=== PATIENT | female | born 1935 | race Caucasian/White ===

== ENCOUNTER 2017-02-17 07:47 | Day surgery (SDC) | payer OTHER, BC ==
[2017-02-17] MEDS ORDERED: D5 LR 1000 ML 1,000 ML IV ONE (08:19)
[2017-02-17] MEDS ORDERED: DIPRIVAN VIAL 20 ML ONE (09:08)
[2017-02-17 10:29] VITALS: BP 159/74
== END 2017-02-17 10:32 | disposition home or self-care (01) ==
LOC: SURG1 07:47
PROVIDERS: ATTEND Internal Medicine Gastroenterology
PROC: 0DB48ZX Excision of Esophagogastric Junction, Via Natural or Artificial Opening Endoscopic, Diagnostic (ICD-10-PCS; principal; 2017-02-17 09:00)
PROC: 0DB88ZX Excision of Small Intestine, Via Natural or Artificial Opening Endoscopic, Diagnostic (ICD-10-PCS; principal; 2017-02-17 09:00)
PROC: 0DB68ZX Excision of Stomach, Via Natural or Artificial Opening Endoscopic, Diagnostic (ICD-10-PCS; principal; 2017-02-17 09:00)
PROC: 0DJ08ZZ Inspection of Upper Intestinal Tract, Via Natural or Artificial Opening Endoscopic (ICD-10-PCS; principal; 2017-02-17 09:00)
DX: R10.13 Epigastric pain (principal); K21.9 Gastro-esophageal reflux disease without esophagitis; K20.8 Other esophagitis; K31.89 Other diseases of stomach and duodenum; K29.60 Other gastritis without bleeding
CPT/HCPCS: 99100; A4217; J3490; J7120

== ENCOUNTER → 2017-09-07 | Outpatient (CLI) | payer OTHER, BC ==
--- NOTE | 2017-09-12 11:33 | MG ---
HISTORY: SCREENING Comparison: 01/02/2015 FINDINGS: Bilateral CC and MLO projections of the right and left breast were obtained. Dense fibroglandular ti ssue is seen to be present. No significant architectural distortion, mass or clustered microcalcific ations can be observed to suggest malignancy. No skin thickening or nipple retraction is appreciated . No pathological lymphadenopathy can be identified. Benign-appearing calcifications scattered thro ughout the right and left breasts are observed. IMPRESSION: NO RADIOGRAPHIC EVIDENCE OF MALIGNANCY. ACR CATEGORY: 2 - benign findings. FOLLOW-UP EXAM 1 YEAR. Diagnostic CAD was utilized and reviewed. * 0 (ZERO) - ASSESSMENT INCOMPLETE; ADDITIONAL IMAGING IS NEEDED. * 1/1 (ONE) - NEGATIVE. * 2/II (TWO) - BENIGN FINDINGS. * 3/III (THREE) - PROBABLY BENIGN FINDING; SHORT INTERVAL FOLLOW-UP SUGGESTED. * 4/IV (FOUR) - SUSPICIOUS ABNORMALITY; BIOPSY SHOULD BE CONSIDERED. * 5/V - HIGHLY SUSPICIOUS OF MALIGNANCY; BIOPSY SHOULD BE PERFORMED. A NEGATIVE X-RAY REPORT SHOULD NOT DELAY BIOPSY IF A DOMINANT OR CLINICALLY SUSPICIOUS MASS IS PRESENT; 4 TO 8 PERCENT OF CANCERS ARE NOT IDENTIFIED BY X-RAY. A NEGA TIVE REPORT MAY REINFORCE THE CLINICAL IMPRESSION. ADENOSIS AND DENSE BREASTS MAY OBSCURE AN UNDERLY ING NEOPLASM. Reported By:
== END ==
LOC: RAD 13:44
PROVIDERS: ATTEND Specialist
DX: Z12.31 Encounter for screening mammogram for malignant neoplasm of breast (principal)
CPT/HCPCS: 77067

== ENCOUNTER 2018-02-28 15:21 | Emergency (ER) | payer OTHER, BC ==
[2018-02-28 15:39] VITALS: BP 130/57; BMI 25.9
--- NOTE | 2018-02-28 16:06 | DR.EXTPAIN ---
HPI - PCP Primary Care Physician: YAHAIRA - Complaint/Symptoms Chief Complaint:: ON TUESDAY REACHED BEHIND HER BACK TO PULL OUT HER SHIRT AND NOW HAS LARGE CIRCUMFENCIAL BRUISE DARK PURPLE AND YELLOW IN COLOR TO RIGHT BICEP AREA. NOTED RADIAL AND PULSE AT ANTICUBITAL AREA. COMPLAINS OF INCREASED PAIN TO AFFECTED AREA Self Treatment fo Chief Complaint: TAKING MEDS - Source History Provided: Patient - Mode of arrival Mode of Arrival: Ambulatory - Timing Onset of Chief Complaint: 02/26/18 PMH - PMH Past Medical History: Yes Past Medical History: Arthritis, Dyslipidemia, GERD Past Surgical History: Yes Surgical History: Appendectomy, Cholecystectomy, Hysterectomy Past Surgical History Comment: RETINA SURGERY ON RIGHT ARM - Family History History of Family Medical Conditions: Yes Family Medical History: Cancer, Heart Failure - Social History Do you use any recreational Drugs:: No Lives With: Family Lives Where: Home - infectious screening In the last 2 months have you had wt loss of >10#?: NO Have you had fever, night sweats or hemotysis?: No Have you traveled outside the country in the last 6 months?: No Isolation: Standard PE - Vital Signs Vitals: Temperature 97.8 F Pulse Rate 86 Respiratory Rate 18 Blood Pressure [Right Arm] 147/77 Blood Pressure 130/57 O2 Sat by Pulse Oximetry 98 - Diagnosis Discharge Problem: Biceps tendon tear - Discharge Plan Condition: Stable - Follow ups/Referrals Follow ups/Referrals: NFD,None [Primary Care Provider] - 3 days - Instructions Instructions: Muscle Strain, Biceps Tendon Disruption (Distal) Additional Instructions: RETURN TO ED IF WORSE.
[2018-02-28] MEDS ORDERED: MORPHINE SULFATE INJ 2 MG INJ IVP ONE (16:08)
[2018-02-28] MEDS ORDERED: ZOFRAN INJ 4 MG VIAL IVP ONE (16:10)
[2018-02-28] MEDS ORDERED: MORPHINE SULFATE INJ 2 MG INJ IM ONE (16:20)
[2018-02-28] MEDS ORDERED: ZOFRAN INJ 4 MG VIAL IM ONE (16:20)
[2018-02-28] MEDS ORDERED: ZOFRAN INJ 4 MG VIAL ONE (16:22)
[2018-02-28] MEDS ORDERED: MORPHINE SULFATE INJ 2 MG INJ ONE (16:22)
--- NOTE | 2018-02-28 17:17 | CT ---
CT right upper extremity without contrast Indication: Pain and ecchymosis of the distal upper arm after recent injury. Comparison: None Technique: CT images of the right humerus were obtained without contrast. Automatic exposure control was utilized. Findings: The posterior distal humerus was excluded. No acute cortical disruption of the visualized h umerus is identified. There is moderate to advanced degenerative disease of the glenohumeral and acro mioclavicular joints, with acromiohumeral interval narrowing. Of note, the supraspinatus and infraspi natus muscle bellies are atrophic. There is subcutaneous stranding of the distal upper arm. As well, there is some nonspecific stranding in the region of the distal biceps musculotendinous junction, without discrete observable collection . The distal biceps tendon is not definitely identified. No significant effusion of the visualized el bow. Impression: 1. Nonspecific fat stranding within the subcutaneous tissues of the distal lower arm, as well as in t he region of the distal biceps musculotendinous junction. The distal biceps tendon is not definitely identified, although the soft tissues are poorly evaluated with noncontrast CT. These findings could represent at least partial distal biceps musculotendinous or tendon tear. Correlate with exam. Consid er nonemergent elbow MRI with FABS positioning, if there is concern for distal biceps injury. 2. No acute osseous injury of the visualized humerus. 3. 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 Reported By:
== END 2018-02-28 18:07 | disposition home or self-care (01) ==
LOC: ER 15:44
DX: M66.821 Spontaneous rupture of other tendons, right upper arm (principal)
CPT/HCPCS: 73200; 96372; 99282; J2270; J2405

== ENCOUNTER 2024-08-13 09:31 | Observation (INO) ==
--- NOTE | 2024-08-13 09:43 | EKG ---
Test Reason : Altered Mental Status Blood Pressure : */* mmHG Vent. Rate : 131 BPM Atrial Rate : 131 BPM P-R Int : 148 ms QRS Dur : 82 ms QT Int : 292 ms P-R-T Axes : 57 -47 88 degrees QTc Int : 431 ms Sinus tachycardia Left anterior fascicular block Left ventricular hypertrophy with repolarization abnormality ( R in aVL , Timothy product ) Possible Lateral infarct (cited on or before 15-SEP-2023) Cannot rule out Inferior infarct , age undetermined Abnormal ECG When compared with ECG of 12-MAR-2024 14:27, Nonspecific T wave abnormality no longer evident in Anterior leads Confirmed by Yaw Jones MD ([id number]) on 08/14/2024 7:34:54 AM Referred By: Confirmed By: Yaw Jones MD
[2024-08-13 09:49] VITALS: BMI 23.6
[2024-08-13] MEDS ORDERED: APRESOLINE INJ 20 MG VIAL ONE (09:58)
--- NOTE | 2024-08-13 09:58 | DR.AMS ---
HPI Time Seen Time Seen by Provider: 08/13/24 09:58 PCP Primary Care Physician: Dr. Pichardo HPI Comment HPI Comment: History as below. Complaint Cheif Complaint Doctors Comments: Patient is 88yr old female in ER with AMS noted this AM. Chief Complaint:: EMS report that pt family states that pt was c/o generalized pain last night and pt had Tramadol 100mg po around midnight and then Xanax 1mg po around 01:30am. Pt's daughter reports that when pt woke up this morning pt would open her eyes but would not respond verbally or follow commands. Upon arrival to ED pt continues to not respond verbally but does respond to painful stimuli, COVID-19 Coronavirus risk:travel/contact w/high risk person: No Has patient experienced Coronavirus symptoms: No Reviewed Nurses Notes Reviewed: Yes Source History Provided: EMS Mode of Arrival Mode of Arrival: EMS Timing Onset of Chief Complaint: 08/13/24 PMH PMH Past Medical History: Yes Past Medical History: Anxiety, CVA, Depression, Dyslipidemia, Migraines, GERD and Hypertension Past Medical History Comment: afib, tardive dyskinesia, pulmonary embolism, TIA Past Surgical History: Yes Surgical History: Appendectomy, Cholecystectomy, Hysterectomy and Ortho Surgery Family History History of Family Medical Conditions: Yes Family Medical History: Cancer, NM and Coronary Artery Disease Social History Does patient currently use any type of tobacco product: No Have you used tobacco products in the last 12 months: No Type of Tobacco Use: None Does any household member use tobacco: No Alcohol Use: None Do you use any recreational Drugs:: No Lives With: Family Lives Where: Home Travel Risk Coronavirus risk:travel/contact w/high risk person: No Has patient experienced Coronavirus symptoms: No Infectious screening In the last 2 months have you had wt loss of >10#?: NO Have you had fever, night sweats or hemotysis?: No Have you traveled outside the country in the last 6 months?: No Isolation: Standard PE Vitals Vital Signs: Temp Pulse Resp BP Pulse Ox O2 Del Method 08/13/24 14:30 97 H 17 95 08/13/24 14:30 161/71 08/13/24 14:15 97 H 16 94 L 08/13/24 14:15 154/70 08/13/24 14:00 166/75 08/13/24 14:00 98 H 17 93 L 08/13/24 13:45 98 H 18 95 08/13/24 13:45 164/73 08/13/24 13:30 163/67 08/13/24 13:30 98 H 17 95 08/13/24 13:15 103 H 18 96 08/13/24 13:15 176/78 08/13/24 13:15 176/78 08/13/24 13:14 171/96 08/13/24 13:14 108 H 17 97 08/13/24 13:13 113 H 08/13/24 12:45 124 H 22 95 08/13/24 12:45 170/82 08/13/24 12:33 178/86 08/13/24 12:33 124 H 22 95 08/13/24 12:31 125 H 08/13/24 10:50 165/77 08/13/24 10:50 106 H 18 95 08/13/24 10:45 106 H 17 95 08/13/24 10:40 164/77 08/13/24 10:40 120 H 23 08/13/24 10:30 168/79 08/13/24 10:30 109 H 18 08/13/24 10:20 159/74 08/13/24 10:19 110 H 28 H 08/13/24 10:16 175/84 08/13/24 10:16 119 H 25 H 08/13/24 10:16 175/84 08/13/24 10:15 121 H 31 H 08/13/24 10:09 119 H 25 H 08/13/24 10:09 161/65 08/13/24 10:01 133 H 29 H 08/13/24 10:01 183/105 08/13/24 10:00 128 H 25 H 96 08/13/24 09:50 136 H 26 H 94 L 08/13/24 09:50 193/111 08/13/24 09:45 140 H 29 H 94 L 08/13/24 09:41 131 H 24 95 08/13/24 09:41 188/82 08/13/24 09:36 186/94 08/13/24 09:36 136 H 26 H 95 08/13/24 09:39 99.6 F 137 H 22 186/94 94 L Room Air ROR Labs Reviewed 08/13/24 09:40 08/13/24 09:40 Laboratory: WBC 11.9 X10^3/uL (3.6-10.0) H 08/13/24 09:40 RBC 4.98 X10^6/uL (3.5-5.4) 08/13/24 09:40 Hgb 14.4 g/dL (12.0-16.0) 08/13/24 09:40 Hct 42.8 % (36.0-47.0) 08/13/24 09:40 MCV 86.1 fL (80.0-100.0) 08/13/24 09:40 MCH 29.0 pg (27.0-34.0) 08/13/24 09:40 MCHC 33.6 g/dL (33.0-35.0) 08/13/24 09:40 RDW 15.4 % (11.6-16.5) 08/13/24 09:40 Plt Count 346 X10^3/uL (150.0-450.0) 08/13/24 09:40 MPV 7.2 fL (7.4-11.0) L 08/13/24 09:40 Neut % (Auto) 87.5 % (42.0-75.0) H 08/13/24 09:40 Lymph % (Auto) 7.2 % (21.0-51.0) L 08/13/24 09:40 [place] % (Auto) 5.0 % (0.0-13.0) 08/13/24 09:40 Eos % (Auto) 0.0 % (0.9-2.9) L 08/13/24 09:40 Baso % (Auto) 0.3 % (0.2-1.0) 08/13/24 09:40 Neut # (Auto) 10.4 x10^3/uL (2.2-4.8) H 08/13/24 09:40 Lymph # (Auto) 0.9 X10^3/uL (1.3-2.9) L 08/13/24 09:40 [place] # (Auto) 0.6 x10^3/uL (0.3-0.8) 08/13/24 09:40 Eos # (Auto) 0.0 x10^3/uL (0.0-0.2) 08/13/24 09:40 Baso # (Auto) 0.0 X10^3/uL (0.0-0.1) 08/13/24 09:40 Absolute Nucleated RBC 0.1 /100WBC 08/13/24 09:40 D-Dimer 2.36 ug/ml (0.0-0.57) H 08/13/24 09:40 Sodium 131 mmol/L (136-145) L 08/13/24 09:40 Corrected Sodium 131 mmol/L (136-145) L 08/13/24 09:40 Potassium 4.2 mmol/L (3.5-5.1) 08/13/24 09:40 Chloride 95 mmol/L (98-107) L 08/13/24 09:40 Carbon Dioxide 27.4 mmol/L (21-32) 08/13/24 09:40 BUN 12 mg/dL (7-18) 08/13/24 09:40 Creatinine 1.00 mg/dL (0.55-1.02) 08/13/24 09:40 Est GFR (MDRD) Af Amer > 60 (>60) 08/13/24 09:40 Est GFR (MDRD) Non-Af 56 (>60) L 08/13/24 09:40 Glucose 112 mg/dL (65-99) H 08/13/24 09:40 Lactic Acid 1.2 mmol/L (0.4-2.0) 08/13/24 12:41 Calcium 9.0 mg/dL (8.5-10.1) 08/13/24 09:40 Corrected Calcium TNP 08/13/24 09:40 Total Bilirubin 0.60 mg/dL (0.2-1.0) 08/13/24 09:40 AST 25 Units/L (15-37) 08/13/24 09:40 ALT 19 Units/L (12-78) 08/13/24 09:40 Alkaline Phosphatase 79 Units/L (46-116) 08/13/24 09:40 Creatine Kinase 118 Units/L (26-192) 08/13/24 09:40 Troponin I High Sens 9.7 ng/L (4.0-60.0) 08/13/24 09:40 B-Natriuretic Peptide 37.2 pg/mL (0-79) 08/13/24 09:40 Total Protein 8.0 g/dL (6.4-8.2) 08/13/24 09:40 Albumin 4.4 g/dL (3.4-5.0) 08/13/24 09:40 Globulin 3.6 g/dL (2.5-4.5) 08/13/24 09:40 Albumin/Globulin Ratio 1.2 Ratio (1.1-2.1) 08/13/24 09:40 Specimen Type Catherized urine 08/13/24 10:17 Urine Color Straw (YELLOW) 08/13/24 10:17 Urine Appearance Clear (CLEAR) 08/13/24 10:17 Urine pH 7.0 (5.0 - 8.0) 08/13/24 10:17 Ur Specific [place] 1.010 (1.000-1.030) 08/13/24 10:17 Urine Protein 2+ (NEGATIVE) 08/13/24 10:17 Urine Glucose (UA) Negative (NEGATIVE) 08/13/24 10:17 Urine Ketones Negative (NEGATIVE) 08/13/24 10:17 Urine Blood 2+ (NEGATIVE) 08/13/24 10:17 Urine Nitrite Negative (NEGATIVE) 08/13/24 10:17 Urine Bilirubin Negative (NEGATIVE) 08/13/24 10:17 Urine Urobilinogen Normal (NORMAL) 08/13/24 10:17 Ur Leukocyte Esterase Negative (NEGATIVE) 08/13/24 10:17 Urine RBC 5-10 /HPF (0-3) A 08/13/24 10:17 Urine WBC 0-2 /HPF (0-5) 08/13/24 10:17 Ur Squamous Epith Cells Few /HPF (NEGATIVE) 08/13/24 10:17 Ur Renal Epithelial Cell Rare /HPF (NEGATIVE) 08/13/24 10:17 Urine Bacteria Trace /HPF (NEGATIVE) 08/13/24 10:17 Urine Mucus Few /HPF (NEGATIVE) 08/13/24 10:17 Ur Culture Indicated? No/not indicated 08/13/24 10:17 Opioid Opioid Risk Tool Age (Sean box if 16-45): No History of Preadolescent Sexual Abuse: No Total: 0 Total Score Risk Category: Low Risk Copyright: Gabriel MCNAMARA predicting aberrant behaviors Discharge Plan Diagnosis Discharge Problem: Generalized weakness, Dehydration AMS (altered mental status) Qualifiers: Altered mental status type: transient alteration of awareness Qualified Code(s): R40.4 - Transient alteration of awareness Pneumonia Qualifiers: Pneumonia type: due to unspecified organism Laterality: bilateral Lung location: lower lobe of lung Qualified Code(s): J18.9 - Pneumonia, unspecified organism Discharge Plan Patient Disposition: 09 ADMITTED INPATIENT Condition: Stable Orders to Discharge Patient Discharge Orders: Transfer (Routine); Ordered 08/13/24 Ordered By: JOSH REYNOSO
[2024-08-13] MEDS: CARDIZEM INJ 50 MG VIAL IVP ONE (10:05)
[2024-08-13 10:11] LABS: BASOPHILS % (AUTO) 0.3 % (0.2-1.0); HEMATOCRIT 42.8 % (36.0-47.0); HEMOGLOBIN 14.4 g/dL (12.0-16.0); LYMPHOCYTES # (AUTO) 0.9 X10^3/uL (1.3-2.9); LYMPHOCYTES % (AUTO) 7.2 % (21.0-51.0); MEAN CORPUSCULAR HGB CONC 33.6 g/dL (33.0-35.0); MEAN CORPUSCULAR VOLUME 86.1 fL (80.0-100.0); MEAN PLATELET VOLUME 7.2 fL (7.4-11.0); MONOCYTES # (AUTO) 0.6 x10^3/uL (0.3-0.8); NEUTROPHILS # (AUTO) 10.4 x10^3/uL (2.2-4.8); NEUTROPHILS % (AUTO) 87.5 % (42.0-75.0); PLATELET COUNT 346 X10^3/uL (150.0-450.0); RED BLOOD COUNT 4.98 X10^6/uL (3.5-5.4); RED CELL DISTRIBUTION WIDTH 15.4 % (11.6-16.5); WHITE BLOOD COUNT 11.9 X10^3/uL (3.6-10.0)
--- NOTE | 2024-08-13 10:23 | RAD ---
EXAMINATION: CHEST, 1 VIEW HISTORY: AMS, FEVER, TACHYCARDIA; . COMPARISON STUDY: Chest x-ray 03/12/2024 TECHNIQUE: Single frontal view of the chest FINDINGS: Lungs are expanded. Heart size and pulmonary vascular pattern appear normal. CP angles are sharp. Bones appear intact. IMPRESSION: No acute cardiopulmonary process seen. THIS IS AN ELECTRONICALLY VERIFIED FINAL REPORT 08/13/2024 10:20 AM - Electronically signed by Rhianna Stafford MD
[2024-08-13 10:24] LABS: ALANINE AMINOTRANSFERASE 19 Units/L (12-78); ALBUMIN 4.4 g/dL (3.4-5.0); ALKALINE PHOSPHATASE 79 Units/L (46-116); ASPARTATE AMINO TRANSFERASE 25 Units/L (15-37); BLOOD UREA NITROGEN 12 mg/dL (7-18); CARBON DIOXIDE 27.4 mmol/L (21-32); CHLORIDE 95 mmol/L (98-107); COR NA(FOR HYPERGLY) 131 mmol/L (136-145); CREATINE KINASE 118 Units/L (26-192); GLUCOSE 112 mg/dL (65-99); POTASSIUM 4.2 mmol/L (3.5-5.1); SODIUM 131 mmol/L (136-145); eGFR NON BLACK RACES 56 (>60)
[2024-08-13] MEDS: APRESOLINE INJ 20 MG VIAL IVP ONE (10:24)
[2024-08-13 10:26] LABS: BILIRUBIN,URINE NEGATIVE (NEGATIVE); BLOOD/HEMOGLOBIN,URINE 2+ (NEGATIVE); GLUCOSE, URINE NEGATIVE (NEGATIVE); KETONES,URINE NEGATIVE (NEGATIVE); LEUKOCYTE ESTERASE ,URINE NEGATIVE (NEGATIVE); NITRITES,URINE NEGATIVE (NEGATIVE); PROTEIN,URINE 2+ (NEGATIVE); UROBILINOGEN,URINE NORMAL (NORMAL)
[2024-08-13] MEDS: NS 1,000 ML IV 1,000 ML IV SCH (10:34)
[2024-08-13 10:52] LABS: APPEARANCE,URINE CLEAR (CLEAR); COLOR,URINE STRAW (YELLOW)
[2024-08-13 10:56] LABS: BACTERIA,URINE TRACE /HPF (NEGATIVE); RENAL EPITHELIAL CELLS,URINE RARE /HPF (NEGATIVE); SQUAMOUS EPITHELIAL CELL,UR FEW /HPF (NEGATIVE)
[2024-08-13] MEDS ORDERED: OMNIPAQUE 350 mg/mL 100 mL BTL 100 ML ONE (12:33)
--- NOTE | 2024-08-13 13:49 | CT ---
EXAMINATION: CTA, CHEST HISTORY: ELEVATED DDIMER; COMPARISON: None. TECHNIQUE: Contiguous axial CT images of the thorax following intravenous contrast. Images are reviewed in the axial imaging plane with post processing thick slab MIP/3D volume images at a workstation.The above C T scan was done with automated exposure control and the mA and kV was adjusted to obtain quality imag es according to patient size. FINDINGS: The lungs are expanded. Subtle interstitial alveolar infiltrates in the lower lung russell. No pleur al fluid collections. The central airways are patent. Normal enhancement of the heart and great vessels. Coronary artery calcifications. No evidence of a cute pulmonary within the main central pulmonary arteries. However, the more distal tertiary branch vessels of the pulmonary bases are not optimally visualized due to patient motion imaging artifacts. Odep-[id number] spondylosis. IMPRESSION: No evidence of thrombus within the main central pulmonary arteries, however, the more distal tertiary branch vessels of the pulmonary arteries in the lower lungs are not optimally visualized due to jaclyn ent motion imaging artifacts. Subtle interstitial alveolar infiltrates in the lower lungs russell. THIS IS AN ELECTRONICALLY VERIFIED FINAL REPORT 08/13/2024 1:36 PM - Electronically signed by Rhianna Stafford MD
[2024-08-13] MEDS: ZOSYN VIAL 3.375 GRAMS 3.375 G in NS 100 ML IV 100 ML IV ONE (14:25)
--- NOTE | 2024-08-13 15:11 | CT ---
EXAM: ABDOMEN/PELVIS W/O CON HISTORY: ABD PAIN ; COMPARISON: CT abdomen 12/20/2022 TECHNIQUE: Multiple CT axial images of the abdomen and pelvis were obtained without IV contrast. Coronal and sag ittal images were reconstructed. Dose reduction techniques included Automated Exposure Control (AEC) and adjustment of mA and kV. FINDINGS: The lung bases are clear. Heart size is large. The liver is normal in size and configuration. Surgical clips are present in the gallbladder fossa f rom a cholecystectomy. The spleen is normal in size and shape. The adrenal glands are normal. The pancreas is normal. No abnormal calcifications are present in the kidneys, ureters, or urinary bladder. The kidneys have normal size and shape. There is no hydronephrosis or significant perirenal edema. The urinary bladd er is contracted around a Watkins balloon catheter. The bowel is not dilated. There is no wall thickening in the bowel or edema around the bowel. A norm al appendix is not identified. But there is no inflammation around the cecum or at the expected locat ion of the appendix. Moderate stool volume in the right colon suggests constipation. Degenerative spondylitic changes are present in the spine. Mild levoconvex scoliosis. IMPRESSION: 1. Findings suggesting right-sided colon constipation 2. No acute findings THIS IS AN ELECTRONICALLY VERIFIED FINAL REPORT 08/13/2024 3:08 PM - Electronically signed by Jimbo Flaherty MD
--- NOTE | 2024-08-13 15:19 | CT ---
EXAM: PELVIS W/O CON HISTORY: FALL, C/O B/L HIP PAIN ; COMPARISON: None. TECHNIQUE: Nonenhanced spiral CT imaging was performed through the pelvis and axial, coronal, and sagittal CT im ages were generated. FINDINGS: No pelvic fracture is identified. There is degeneration in both hip joints and in both SI joints and in the pubic symphysis and in the lower lumbar spine. There is a Watkins catheter in the urinary blad yadira. No worrisome soft tissue abnormality in the pelvis. IMPRESSION: Negative for fracture. THIS IS AN ELECTRONICALLY VERIFIED FINAL REPORT 08/13/2024 3:17 PM - Electronically signed by Saul Carrasquillo MD
--- NOTE | 2024-08-13 15:19 | CT ---
EXAM: LUMBAR SPINE W/O CON HISTORY: FALL, C/O B/L HIP PAIN ; COMPARISON: None TECHNIQUE: Multiple CT axial images of the lumbar spine were obtained without IV contrast. Coronal and sagittal images were reconstructed. Dose reduction techniques included Automated Exposure Control (AEC) and ad justment of mA and kV. FINDINGS: Mild levoconvex scoliosis is present. The usual lordosis is maintained. The bones are demineralized . There are 5 non ribbed lumbar vertebra. The heights of the vertebral bodies are normal. A few minimal retrolistheses are likely degenerative . No spondylolysis. There is no fracture. Moderate spondylosis is present manifested as degenerative disc disease and facet osteoarthritis. Right ovary appears enlarged with a possible cyst measuring 2.4 cm. Recommend correlation with nonem ergent pelvic sonography. There are no calcified renal stones. No hydronephrosis. No abdominal aortic aneurysm. IMPRESSION: 1. No acute finding in the lumbar spine 2. (2.4 cm) right ovarian cyst; recommend correlation with sonography THIS IS AN ELECTRONICALLY VERIFIED FINAL REPORT 08/13/2024 3:15 PM - Electronically signed by Jimbo Flaherty MD
[2024-08-13] MEDS ORDERED: XOPENEX 1.25 MG/3 ML NEBULE NEB ONE (16:13)
[2024-08-13] MEDS: XOPENEX 1.25 MG/3 ML NEBULE NEB SCH (16:15)
[2024-08-13] MEDS ORDERED: NS 250 ML IV 25 ML IV PRN (16:36)
[2024-08-13] MEDS ORDERED: ULTRAM PO PRN (16:36)
[2024-08-13] MEDS ORDERED: TYLENOL 325 MG TAB PO PRN (16:36)
[2024-08-13] MEDS: ZOSYN VIAL 3.375 GRAMS 3.375 G in NS 100 ML IV 100 ML IV SCH (21:01)
[2024-08-13] MEDS: ELIQUIS PO SCH (21:02)
[2024-08-13] MEDS: SEROquel TAB 25 mg PO SCH (21:02)
[2024-08-13] MEDS: ALPRAZOLAM ODT PO SCH (21:02)
[2024-08-13] MEDS: ZOLOFT PO SCH (21:02)
[2024-08-13] MEDS: NS 250 ML IV 25 ML IV PRN (21:09)
[2024-08-14] MEDS: XOPENEX 1.25 MG/3 ML NEBULE NEB SCH
[2024-08-14 05:38] LABS: CHLORIDE 97 mmol/L (98-107)
[2024-08-14 05:41] LABS: BASOPHILS % (AUTO) 0.4 % (0.2-1.0); EOSINOPHILS % (AUTO) 0.2 % (0.9-2.9); HEMOGLOBIN 13.5 g/dL (12.0-16.0); LYMPHOCYTES # (AUTO) 0.9 X10^3/uL (1.3-2.9); LYMPHOCYTES % (AUTO) 8.8 % (21.0-51.0); MEAN CORPUSCULAR HEMOGLOBIN 29.1 pg (27.0-34.0); MEAN CORPUSCULAR HGB CONC 33.8 g/dL (33.0-35.0); MEAN CORPUSCULAR VOLUME 86.1 fL (80.0-100.0); MEAN PLATELET VOLUME 7.5 fL (7.4-11.0); MONOCYTES # (AUTO) 0.7 x10^3/uL (0.3-0.8); MONOCYTES % (AUTO) 7.4 % (0.0-13.0); NEUTROPHILS # (AUTO) 8.3 x10^3/uL (2.2-4.8); NEUTROPHILS % (AUTO) 83.2 % (42.0-75.0); PLATELET COUNT 290 X10^3/uL (150.0-450.0); RED BLOOD COUNT 4.65 X10^6/uL (3.5-5.4); RED CELL DISTRIBUTION WIDTH 15.7 % (11.6-16.5)
[2024-08-14 07:06] LABS: ALANINE AMINOTRANSFERASE 13 Units/L (12-78); ALBUMIN 3.7 g/dL (3.4-5.0); ALKALINE PHOSPHATASE 69 Units/L (46-116); ASPARTATE AMINO TRANSFERASE 16 Units/L (15-37); BLOOD UREA NITROGEN 14 mg/dL (7-18); CALCIUM 8.3 mg/dL (8.5-10.1); CARBON DIOXIDE 24.3 mmol/L (21-32); COR NA(FOR HYPERGLY) 131 mmol/L (136-145); CREATININE 1.03 mg/dL (0.55-1.02); GLUCOSE 122 mg/dL (65-99); POTASSIUM 3.2 mmol/L (3.5-5.1); SODIUM 130 mmol/L (136-145); TOTAL PROTEIN 6.9 g/dL (6.4-8.2); eGFR NON BLACK RACES 54 (>60)
[2024-08-14] MEDS ORDERED: CONSULT PHARMACY - POTASSIUM & MAGNESIUM XX SCH (08:00)
[2024-08-14] MEDS ORDERED: BUSPAR PO SCH (09:00)
[2024-08-14] MEDS ORDERED: VALBENAZINE 80 MG PO SCH (09:00)
--- NOTE | 2024-08-14 09:30 | DR.H&P ---
H&P History & Physical for Day of: H&P Date: 08/14/24 Chief Complaint Chief Complaint: AMS, agitation History of Present Illness History of Present Illness: Patient is a 88y/o female with multiple comorbidities including atrial fibrillation, HTN, GERD, PE, MDD, anxiety, dementia and chronic pain presented with AMS and agitation. Patient had a TIA in February 2024 and a right foot injury. Her agitation and combativeness has been w orsening since then. She does see Psych and was advised to go to the ER for evaluation. ER notes state that patient has not slept for days and goes through cycles of these behaviors. ER work up showed CT-brain which was negative for acute changes. Patient did have elevated d-dimer, CTA showed no PE but infiltrates. CTAP showed constipation.UA was negative. Patient was started on hydration and IV Zosyn. Cultures were collected. She was admitted for further management. During nursing assessment yesterday, patient was very drowsy and only answering some yes or no questions. Patient appears to be the same this morning. She does open her eyes to her name. She did not eat last night. No family present at bedside this morning. Patient did receive her bedtime medications last night. Labs/imaging reviewed: -WBC 10 Hgb 13.5 K 3.2 Na 130 -CT-brain, CTAP and CT-lumbar reviewed -Blood Cx pending. -COVID resp panel (-) Plan: Monitor patient closely on med-surg. Continue IV fluids and IV Zosyn. Continue nebs prn. Continue Tylenol prn for fever. Follow pending cultures. Will hold all sedating medications for now. Resume other home medications. Replace electrolytes as per protocol. PT/OT as tolerated. Monitor AM labs/imaging. Past Medical History Past Medical History: Anxiety, CVA, Depression, Dyslipidemia, Migraines, GERD and Hypertension Additional Medical History: ATRIAL FIBRILLATION Past Surgical History Surgical History: Appendectomy and Hysterectomy Family History Family Medical History: [place] Social History Does patient currently use any type of tobacco product: No Have you used tobacco products in the last 12 months: No Type of Tobacco Use: None Does any household member use tobacco: No Alcohol Use: None Medications Home Medications: Home Medications Medication Instructions Recorded Confirmed Type apixaban 2.5 mg tablet (Eliquis) 2.5 mg PO BID 09/14/23 08/13/24 History atorvastatin 40 mg tablet 40 mg PO QDAY 09/14/23 08/13/24 History losartan 50 mg tablet 50 mg PO QDAY 09/14/23 08/13/24 History multivitamin 1 tab PO QDAY 09/14/23 08/13/24 History pantoprazole 40 mg tablet,delayed 40 mg PO QDAY 09/14/23 08/13/24 History release sertraline 50 mg tablet 50 mg PO BID 09/14/23 08/13/24 History valbenazine 80 mg capsule 80 mg PO QDAY 09/14/23 08/13/24 History (Ingrezza) acetaminophen 325 mg tablet 650 mg PO Q6H PRN 03/12/24 08/13/24 History (Tylenol) buspirone 15 mg tablet 15 mg PO QDAY 03/12/24 08/13/24 History meloxicam 15 mg tablet 15 mg PO QDAY 03/12/24 08/13/24 History tramadol 50 mg tablet 50 mg PO TID PRN 03/12/24 08/13/24 History amlodipine 2.5 mg tablet 5 mg PO QDAY 08/13/24 08/13/24 History quetiapine 25 mg tablet 12.5 mg PO QPM 08/13/24 08/13/24 History rivastigmine 9.5 mg/24 hour 1 patch QDAY 08/13/24 08/13/24 History transdermal patch Allergies Allergies Allergy/AdvReac Type Severity Reaction Status Date / Time metoclopramide [From Reglan] Allergy Verified 08/13/24 14:56 lorazepam [From Ativan] AdvReac Verified 08/13/24 14:56 Sulfa (Sulfonamide AdvReac Verified 08/13/24 14:56 Antibiotics) [SULFA] Labs 08/14/24 04:35 08/14/24 06:00 Labs: Laboratory WBC 10.0 X10^3/uL (3.6-10.0) 08/14/24 04:35 RBC 4.65 X10^6/uL (3.5-5.4) 08/14/24 04:35 Hgb 13.5 g/dL (12.0-16.0) 08/14/24 04:35 Hct 40.0 % (36.0-47.0) 08/14/24 04:35 MCV 86.1 fL (80.0-100.0) 08/14/24 04:35 MCH 29.1 pg (27.0-34.0) 08/14/24 04:35 MCHC 33.8 g/dL (33.0-35.0) 08/14/24 04:35 RDW 15.7 % (11.6-16.5) 08/14/24 04:35 Plt Count 290 X10^3/uL (150.0-450.0) 08/14/24 04:35 MPV 7.5 fL (7.4-11.0) 08/14/24 04:35 Neut % (Auto) 83.2 % (42.0-75.0) H 08/14/24 04:35 Lymph % (Auto) 8.8 % (21.0-51.0) L 08/14/24 04:35 [place] % (Auto) 7.4 % (0.0-13.0) 08/14/24 04:35 Eos % (Auto) 0.2 % (0.9-2.9) L 08/14/24 04:35 Baso % (Auto) 0.4 % (0.2-1.0) 08/14/24 04:35 Neut # (Auto) 8.3 x10^3/uL (2.2-4.8) H 08/14/24 04:35 Lymph # (Auto) 0.9 X10^3/uL (1.3-2.9) L 08/14/24 04:35 [place] # (Auto) 0.7 x10^3/uL (0.3-0.8) 08/14/24 04:35 Eos # (Auto) 0.0 x10^3/uL (0.0-0.2) 08/14/24 04:35 Baso # (Auto) 0.0 X10^3/uL (0.0-0.1) 08/14/24 04:35 Absolute Nucleated RBC 0.1 /100WBC 08/14/24 04:35 D-Dimer 2.36 ug/ml (0.0-0.57) H 08/13/24 09:40 Sodium 130 mmol/L (136-145) L 08/14/24 06:00 Corrected Sodium 131 mmol/L (136-145) L 08/14/24 06:00 Potassium 3.2 mmol/L (3.5-5.1) L 08/14/24 06:00 Chloride 97 mmol/L (98-107) L 08/14/24 06:00 Carbon Dioxide 24.3 mmol/L (21-32) 08/14/24 06:00 BUN 14 mg/dL (7-18) 08/14/24 06:00 Creatinine 1.03 mg/dL (0.55-1.02) H 08/14/24 06:00 Est GFR (MDRD) Af Amer > 60 (>60) 08/14/24 06:00 Est GFR (MDRD) Non-Af 54 (>60) L 08/14/24 06:00 Glucose 122 mg/dL (65-99) H 08/14/24 06:00 Lactic Acid 1.2 mmol/L (0.4-2.0) 08/13/24 12:41 Calcium 8.3 mg/dL (8.5-10.1) L 08/14/24 06:00 Corrected Calcium TNP 08/14/24 06:00 Magnesium 1.6 mg/dL (2.0-2.9) L 08/14/24 06:00 Total Bilirubin 0.70 mg/dL (0.2-1.0) 08/14/24 06:00 AST 16 Units/L (15-37) 08/14/24 06:00 ALT 13 Units/L (12-78) 08/14/24 06:00 Alkaline Phosphatase 69 Units/L (46-116) 08/14/24 06:00 Creatine Kinase 118 Units/L (26-192) 08/13/24 09:40 Troponin I High Sens 9.7 ng/L (4.0-60.0) 08/13/24 09:40 B-Natriuretic Peptide 37.2 pg/mL (0-79) 08/13/24 09:40 Total Protein 6.9 g/dL (6.4-8.2) 08/14/24 06:00 Albumin 3.7 g/dL (3.4-5.0) 08/14/24 06:00 Globulin 3.2 g/dL (2.5-4.5) 08/14/24 06:00 Albumin/Globulin Ratio 1.2 Ratio (1.1-2.1) 08/14/24 06:00 Specimen Type Catherized urine 08/13/24 10:17 Urine Color Straw (YELLOW) 08/13/24 10:17 Urine Appearance Clear (CLEAR) 08/13/24 10:17 Urine pH 7.0 (5.0 - 8.0) 08/13/24 10:17 Ur Specific [place] 1.010 (1.000-1.030) 08/13/24 10:17 Urine Protein 2+ (NEGATIVE) 08/13/24 10:17 Urine Glucose (UA) Negative (NEGATIVE) 08/13/24 10:17 Urine Ketones Negative (NEGATIVE) 08/13/24 10:17 Urine Blood 2+ (NEGATIVE) 08/13/24 10:17 Urine Nitrite Negative (NEGATIVE) 08/13/24 10:17 Urine Bilirubin Negative (NEGATIVE) 08/13/24 10:17 Urine Urobilinogen Normal (NORMAL) 08/13/24 10:17 Ur Leukocyte Esterase Negative (NEGATIVE) 08/13/24 10:17 Urine RBC 5-10 /HPF (0-3) A 08/13/24 10:17 Urine WBC 0-2 /HPF (0-5) 08/13/24 10:17 Ur Squamous Epith Cells Few /HPF (NEGATIVE) 08/13/24 10:17 Ur Renal Epithelial Cell Rare /HPF (NEGATIVE) 08/13/24 10:17 Urine Bacteria Trace /HPF (NEGATIVE) 08/13/24 10:17 Urine Mucus Few /HPF (NEGATIVE) 08/13/24 10:17 Ur Culture Indicated? No/not indicated 08/13/24 10:17 SARS-CoV-2 (PCR) Negative (NEGATIVE) 08/13/24 14:35 Influenza Type A (PCR) Negative (NEGATIVE) 08/13/24 14:35 Influenza Type B (PCR) Negative (NEGATIVE) 08/13/24 14:35 RSV (PCR) Negative (NEGATIVE) 08/13/24 14:35 Review of Systems Constitutional: Weakness and Malaise Eyes: No Symptoms Reported ENT: No Symptoms Reported Respiratory: Shortness of Breath Cardiovascular: No Symptoms Reported Gastrointestinal: No Symptoms Reported Genitourinary: No Symptoms Reported Musculoskeletal: Foot Pain Skin: No Symptoms Reported Neurological: Confusion Physical Exam Vital Signs: Vital Signs Temperature 99.9 F Temperature 98.9 F Temperature 100.1 F Pulse Rate [Right Brachial] 126 Pulse Rate [Right Brachial] 100 Respiratory Rate 22 Respiratory Rate 19 Blood Pressure [Left Arm] 159/85 Blood Pressure [Right Arm] 134/77 O2 Sat by Pulse Oximetry 90 O2 Sat by Pulse Oximetry 91 Oriented: Unable to test Eyes: Normal Ear: Normal Nose: Normal Respiratory: Diminished Throughout Cardiovascular: Tachycardia Auscultation: Bowel Sounds: Normal Palpation: Normal Tenderness: Normal Skin: Decreased Turgur Psychiatric: Normal Mood Description: Calm Affect: Normal Speech Pattern: Aphasic Assessment/Plan (1) Pneumonia: Qualifiers: Laterality: bilateral Lung location: lower lobe of lung Pneumonia type: due to unspecified organism Qualified Code(s): J18.9 - Pneumonia, uns pecified organism Status: Acute (2) AMS (altered mental status): Qualifiers: Altered mental status type: disorientation Qualified Code(s): R41.0 - Disorientation, unspecified Status: Resolved (3) Generalized weakness: Status: Acute (4) Dehydration: Status: Acute (5) Hypokalemia: Status: Acute (6) Anxiety: Status: Chronic (7) Depression: Qualifiers: Active/Remission status: currently active Depression Type: major depressive disorder Major depression episode severity: moderate Major depression recurrence: single episode Qualified Code(s): F32.1 - Major depressive disorder, single episode, moderate Status: Chronic (8) Hypertension: Qualifiers: Hypertension type: primary hypertension Qualified Code(s): I10 - Essential (primary) hypertension Status: Chronic (9) Atrial fibrillation: Qualifiers: Atrial fibrillation type: unspecified Qualified Code(s): I48.91 - Unspecified atrial fibrillation Status: Chronic Review H&P Reviewed: Yes Patient was examined?: Yes
[2024-08-14] MEDS: COZAAR PO SCH (09:55)
[2024-08-14] MEDS: VSL#3 PROBIOTIC CAP 112.5 B PO SCH (09:56)
[2024-08-14] MEDS: TAB-A-VITE PO SCH (09:56)
[2024-08-14] MEDS: PROTONIX TAB 40 MG PO SCH (09:57)
[2024-08-14] MEDS: PATIENT'S HOME MEDICATION PO SCH (09:58)
[2024-08-14] MEDS: NORVASC TAB 2.5 MG PO SCH (09:59)
[2024-08-14] MEDS: MOBIC TAB 15 MG PO SCH (09:59)
[2024-08-14] MEDS: K-DUR TAB 20 MEQ PO SCH (09:59)
[2024-08-14] MEDS: LIPITOR TAB 40 MG PO SCH (09:59)
[2024-08-14] MEDS: EXELON PATCH TD SCH (10:23)
--- NOTE | 2024-08-14 16:19 | MRI ---
EXAM: BRAIN W/O CON HISTORY: AMS/ FAST BRAIN RAN DUE TO PATIENT HAVING CLAUSTROPHOBIA ; COMPARISON: None. TECHNIQUE: Multiplaner, multisequence MRI of the head is performed without IV contrast. FINDINGS: No evidence of restricted diffusion to indicate a recent infarction. No suprasellar asymmetry is identified. Normal signal and morphology of the corpus callosum. Cerebe llar tonsils are normal in position. No intracranial hemorrhage or extra-axial collection. No global mass effect, midline shift, or evide nce of cerebral edema. Generalized cortical atrophy with ex vacuo dilatation of the ventricular syst em. Moderate degenerative white matter signal changes associated with chronic small-vessel ischemia. Chronic lacunar infarction left central jesus and left faulkner radiata. Susceptibility artifact denoting tiny foci of microhemosiderin deposition within the bilateral cerebr al hemispheres, basal ganglia and cerebellar hemispheres most likely on the basis of chronic hyperten sive encephalopathy. The major flow voids of the anterior and posterior intracranial circulation are adequately maintained . The left vertebral artery is dominant within the posterior hemisphere. Sinuses are predominantly clear. Mild ethmoid air cell mucosal thickening is observed. Mastoid air cells are clear. IAC landmarks are symmetric. IMPRESSION: No acute intracranial abnormalities Moderate age-related cortical atrophy with commensurate ventricular dilatation Moderate degenerative white matter signal changes and remote lacunar infarctions associated with bond manager brianna small-vessel ischemia. See above for complete details. Scattered foci of susceptibility artifact indicating microhemosiderin deposition within the supratent orial brain and infratentorial brain; this pattern may be associated with sequelae of chronic hyperte nsive encephalopathy. THIS IS AN ELECTRONICALLY VERIFIED FINAL REPORT 08/14/2024 4:16 PM - Electronically signed by Patrice Whitaker MD
[2024-08-15 04:54] LABS: BASOPHILS % (AUTO) 0.4 % (0.2-1.0); EOSINOPHILS # (AUTO) 0.1 x10^3/uL (0.0-0.2); EOSINOPHILS % (AUTO) 1.2 % (0.9-2.9); HEMATOCRIT 33.3 % (36.0-47.0); HEMOGLOBIN 11.3 g/dL (12.0-16.0); LYMPHOCYTES # (AUTO) 1.2 X10^3/uL (1.3-2.9); LYMPHOCYTES % (AUTO) 21.9 % (21.0-51.0); MEAN CORPUSCULAR HEMOGLOBIN 28.8 pg (27.0-34.0); MEAN CORPUSCULAR HGB CONC 33.9 g/dL (33.0-35.0); MONOCYTES # (AUTO) 0.5 x10^3/uL (0.3-0.8); NEUTROPHILS # (AUTO) 3.6 x10^3/uL (2.2-4.8); NEUTROPHILS % (AUTO) 66.5 % (42.0-75.0); PLATELET COUNT 260 X10^3/uL (150.0-450.0); RED BLOOD COUNT 3.92 X10^6/uL (3.5-5.4); RED CELL DISTRIBUTION WIDTH 15.5 % (11.6-16.5); WHITE BLOOD COUNT 5.4 X10^3/uL (3.6-10.0)
[2024-08-15 05:05] LABS: ALANINE AMINOTRANSFERASE 13 Units/L (12-78); ALBUMIN 2.9 g/dL (3.4-5.0); ALKALINE PHOSPHATASE 52 Units/L (46-116); ASPARTATE AMINO TRANSFERASE 10 Units/L (15-37); BLOOD UREA NITROGEN 14 mg/dL (7-18); CARBON DIOXIDE 26.3 mmol/L (21-32); CHLORIDE 102 mmol/L (98-107); COR CA(FOR HYPOALB) 8.9 mg/dL (8.5-10.1); CREATININE 0.81 mg/dL (0.55-1.02); GLUCOSE 87 mg/dL (65-99); MAGNESIUM 1.7 mg/dL (2.0-2.9); TOTAL PROTEIN 5.7 g/dL (6.4-8.2); eGFR NON BLACK RACES > 60 (>60)
[2024-08-15] MEDS ORDERED: CONSULT PHARMACY - POTASSIUM & MAGNESIUM XX SCH ×2 (07:00→08:00)
[2024-08-15] MEDS ORDERED: NORVASC TAB 2.5 MG ONE (08:34)
[2024-08-15] MEDS ORDERED: MAG-OX TAB PO SCH (09:00)
[2024-08-15] MEDS ORDERED: K-DUR TAB 20 MEQ PO SCH (09:00)
[2024-08-15 09:07] VITALS: O2SAT 96
[2024-08-15] MEDS ORDERED: ALPRAZOLAM ODT PO PRN (09:12)
[2024-08-15] MEDS: NS + KCL 40 MEQ/L 1,000 ML with MAGNESIUM SULFATE 50% INJ VIAL 2 G IV SCH (09:45)
[2024-08-15 12:25] VITALS: BP 176/79; PULSE 67; RESP 18; TEMP 97.9
[2024-08-15] MEDS ORDERED: COLACE CAP 100 MG PO SCH (21:00)
[2024-08-16 10:38] LABS: SODIUM 134 mmol/L (136-145)
== END 2024-08-15 16:10 | disposition home health service (06) ==
LOC: MED/SURG 09:31 → ER 09:31 → MED/SURG 15:40
PROVIDERS: ADMIT Internal Medicine; ATTEND Internal Medicine
DX: R79.1 Abnormal coagulation profile; F41.8 Other specified anxiety disorders; R79.89 Other specified abnormal findings of blood chemistry; R10.84 Generalized abdominal pain; F40.240 Claustrophobia; Z73.89 Other problems related to life management difficulty; Z74.1 Need for assistance with personal care; I10 Essential (primary) hypertension; M25.551 Pain in right hip; R94.31 Abnormal electrocardiogram [ECG] [EKG]; W18.39XA Other fall on same level, initial encounter; E87.6 Hypokalemia; Z20.822 Contact with and (suspected) exposure to COVID-19; K59.09 Other constipation; I48.91 Unspecified atrial fibrillation; E86.0 Dehydration; F32.1 Major depressive disorder, single episode, moderate; R53.1 Weakness; K21.9 Gastro-esophageal reflux disease without esophagitis; B95.3 Streptococcus pneumoniae as the cause of diseases classified elsewhere; R26.89 Other abnormalities of gait and mobility; R41.0 Disorientation, unspecified; Z59.12 Inadequate housing utilities; E78.2 Mixed hyperlipidemia; Z66 Do not resuscitate; E87.1 Hypo-osmolality and hyponatremia; E83.42 Hypomagnesemia; J18.8 Other pneumonia, unspecified organism; M25.552 Pain in left hip; Z59.89 Other problems related to housing and economic circumstances